=== PATIENT | female | born 1960 | race Caucasian/White ===

== ENCOUNTER → 2017-11-05 | Outpatient (CLI) | payer MEDICARE ==
[~2017-11-05] MED LIST: ALBU8.5H8 INH; BUDE10.2 INH; ERGO500017 PO; HYDR-3307 PO; HYDR25TA6 PO; HYDR30TA PO; METH25VI9 IM
== END ==
LOC: CFH 12:20
PROVIDERS: ATTEND Genetic Counselor, MS
DX: M79.89 Other specified soft tissue disorders (principal); M79.605 Pain in left leg

== ENCOUNTER → 2018-07-08 | Outpatient (CLI) | payer MEDICARE ==
[~2018-07-08] MED LIST changes: +METH25VI62 IM; -METH25VI9 IM; +OMNIPAQUE 350 MG/ML, 100ML BOTTLE ONE
== END | disposition home or self-care (01) ==
LOC: RAD 10:52
PROVIDERS: ATTEND Nurse Practitioner Family
DX: I25.10 Atherosclerotic heart disease of native coronary artery without angina pectoris (principal)
CPT/HCPCS: 71275; Q9967

== ENCOUNTER 2021-01-24 13:08 | Outpatient (CLI) | payer MEDICARE ==
[2021-01-24 13:51] LABS: BASOPHILS % (AUTO) 0 % (0-1); EOSINOPHILS % (AUTO) 3 % (1-7); LYMPHOCYTES % (AUTO) 22 % (22-44); MD NO; MEAN CORPUSCULAR HEMOGLOBIN 33.4 pg (27.0-34.8); MEAN CORPUSCULAR HGB CONC 34.3 g/dL (32.4-35.8); MEAN PLATELET VOLUME 8.7 fL (7.4-10.4); MONOCYTES % (AUTO) 7 % (2-9); NEUTROPHILS % (AUTO) 67 % (42-75); PLATELET COUNT 152 x10^3/uL (130-400); RED BLOOD COUNT 4.24 x10^6/uL (3.82-5.3)
[2021-01-24 14:08] LABS: ALBUMIN 3.3 g/dL (3.4-5.0); ANION GAP 6 mmol/L (5-15); CALCIUM 8.8 mg/dL (8.5-10.1); CHLORIDE 111 mmol/L (98-107)
[2021-01-24 14:13] LABS: ALANINE AMINOTRANSFERASE 21 U/L (12-78); ALKALINE PHOSPHATASE 62 U/L (45-117); BILIRUBIN,TOTAL 0.9 mg/dL (0.2-1.0); CHOLESTEROL, TOTAL 196 mg/dL (140-239); HDL CHOL % 25 % (28-40); HDL CHOLESTEROL (DIRECT) 49 mg/dL (40-60); LDL CHOLESTEROL,CALCULATED 128 mg/dL (54-169); LDL/HDL RATIO 2.6 (0.5-3.0); TOTAL PROTEIN 6.9 g/dL (6.4-8.2); TRIGLYCERIDES 93 mg/dL (50-200); VLDL CHOLESTEROL 19 mg/dL (0-25)
== END 2021-01-24 23:59 | disposition home or self-care (01) ==
LOC: LAB 13:08
PROVIDERS: ATTEND Physician Assistant Medical
DX: E11.638 Type 2 diabetes mellitus with other oral complications (principal); E11.65 Type 2 diabetes mellitus with hyperglycemia; E11.69 Type 2 diabetes mellitus with other specified complication; B35.8 Other dermatophytoses; E78.2 Mixed hyperlipidemia; E78.5 Hyperlipidemia, unspecified; D75.1 Secondary polycythemia; D84.9 Immunodeficiency, unspecified; F11.20 Opioid dependence, uncomplicated
CPT/HCPCS: 36415; 80053; 80061; 83036; 83880; 85025

== ENCOUNTER → 2021-01-24 | Outpatient (CLI) | payer MEDICARE ==
[~2021-01-24] MED LIST changes: +HYDR-3248 PO; -HYDR-3307 PO; -OMNIPAQUE 350 MG/ML, 100ML BOTTLE ONE
[2021-01-24 14:05] LABS: AMPHETAMINE SCREEN, URINE Negative (Negative); BENZODIAZEPINE SCREEN, URINE Negative (Negative); COCAINE SCREEN, URINE Negative (Negative)
[2021-01-24 14:06] LABS: BARBITURATE SCREEN, URINE Negative (Negative); CANNABINOID SCREEN, URINE Negative (Negative); METHADONE SCREEN, URINE Negative (Negative); OPIATE SCREEN, URINE Positive (Negative)
[2021-01-24 14:15] LABS: FREE T4 (FREE THYROXINE) 1.09 ng/dL (0.76-1.46)
== END | disposition home or self-care (01) ==
LOC: LAB 13:12
PROVIDERS: ATTEND Genetic Counselor, MS
DX: L40.50 Arthropathic psoriasis, unspecified (principal); E11.69 Type 2 diabetes mellitus with other specified complication; Z79.899 Other long term (current) drug therapy
CPT/HCPCS: 36415; 80307; 84439; 84443

== ENCOUNTER 2021-02-17 08:51 | Day surgery (SDC) | payer MEDICARE ==
[~2021-02-17] VITALS: Ht 165.1 cm; Wt 69.1 kg
[2021-02-17 09:35] VITALS: BP 113/57
[2021-02-17] MEDS ORDERED: CLOP75TA52 PO (09:41)
[2021-02-17] MEDS ORDERED: FOLI1TAB32 PO (09:43)
[2021-02-17] MEDS ORDERED: OXYB-39 PO (09:43)
[2021-02-17] MEDS ORDERED: ASPIRIN 325 MG TABLET EC ONE (09:56)
[2021-02-17] MEDS ORDERED: ASPIRIN 325 MG TABLET EC PO ONE (10:00)
[2021-02-17] MEDS ORDERED: FENTANYL PF 100 MCG/2ML ONE (10:14)
[2021-02-17] MEDS ORDERED: MIDAZOLAM 1 MG/ML, 5ML ONE (10:14)
[2021-02-17] MEDS ORDERED: TICAGRELOR 90 MG TABLET ONE (10:14)
[2021-02-17] MEDS ORDERED: BIVALIRUDIN 250 MG ONE (10:14)
[2021-02-17] MEDS ORDERED: VERAPAMIL 2.5 MG/ML, 2ML ONE (10:14)
[2021-02-17] MEDS ORDERED: LIDOCAINE-MPF 1%, 5ML ONE (10:15)
[2021-02-17] MEDS ORDERED: NITROGLYCERIN 5 MG/ML, 10ML ONE (10:15)
[2021-02-17] MEDS ORDERED: HEPARIN 1,000 UNITS/ML, 10ML ONE (10:15)
[2021-02-17] MEDS ORDERED: SODIUM CHLORIDE 0.9% 1,000 ML IV SCH (10:30)
[2021-02-17 10:37] LABS: ANION GAP 9 mmol/L (5-15); CALCIUM 9.3 mg/dL (8.5-10.1); CHLORIDE 109 mmol/L (98-107); CREATININE 0.59 mg/dL (0.55-1.02)
== END 2021-02-17 12:15 | disposition home or self-care (01) ==
LOC: CACL 08:51
PROVIDERS: ATTEND Internal Medicine Cardiovascular Disease
DX: I25.119 Atherosclerotic heart disease of native coronary artery with unspecified angina pectoris (principal); I25.83 Coronary atherosclerosis due to lipid rich plaque; I25.82 Chronic total occlusion of coronary artery; I42.9 Cardiomyopathy, unspecified; I35.0 Nonrheumatic aortic (valve) stenosis; I10 Essential (primary) hypertension; E11.9 Type 2 diabetes mellitus without complications; E78.5 Hyperlipidemia, unspecified; J44.9 Chronic obstructive pulmonary disease, unspecified; Z79.891 Long term (current) use of opiate analgesic; Z79.899 Other long term (current) drug therapy
CPT/HCPCS: 36415; 80048; 93458; 99156; C1769; C1894; J1644; J2250; J3010; Q9967; J0583